=== PATIENT | female | born 1990 | race American Indian/Alaskan Native ===

== ENCOUNTER 2017-01-18 16:04 | Emergency (ER) | payer SELFPAY ==
[2017-01-18 16:32] LABS: Urine Drugs of Abuse Note Disclamer
[2017-01-18 16:37] LABS: Basophils % (Auto) 0.7 % (0.0-1.8); Eosinophils % (Auto) 0.8 % (0.0-4.3); Hematocrit 39.8 % (30.3-42.9); Hemoglobin 13.7 gm/dl (10.1-14.3); Mean Corpuscular HGB Conc 35 % (30-34); Mean Corpuscular Hemoglobin 32 pg (28-32); Mean Corpuscular Volume 92 fl (79-97); Platelet Count 274 K/mm3 (140-440); Red Blood Count 4.35 M/mm3 (3.65-5.03); Red Cell Distribution Width 12.7 % (13.2-15.2); White Blood Count 6.7 K/mm3 (4.5-11.0)
[2017-01-18 16:48] LABS: Bilirubin,Urine NEG (Negative); Blood,Urine NEG (Negative); Ketones,Urine NEG (Negative); Leukocyte Esterase,Urine NEG (Negative); Nitrite,Urine NEG (Negative); Protein,Urine <15 mg/dL mg/dL (Negative); Urobilinogen,Urine < 2.0 mg/dL (<2.0); WBC,Urine < 1.0 /HPF (0.0-6.0)
[2017-01-18 16:48] LABS: Anion Gap 24 mmol/L; BUN/Creatinine Ratio 18.33; Blood Urea Nitrogen 11 mg/dL (7-17); Calcium 9.6 mg/dL (8.4-10.2); Carbon Dioxide 19 mmol/L (22-30); Chloride 99.4 mmol/L (98-107); Glucose 120 mg/dL (65-100); Potassium 3.5 mmol/L (3.6-5.0); Sodium 139 mmol/L (137-145)
[2017-01-18] MEDS ORDERED: NACL 0.9% 500 ML IR ONE (17:08)
--- NOTE | 2017-01-18 17:12 | Emergency Department Report ---
HPI - General Chief Complaint: Psych Time Seen by Provider: 01/18/17 16:50 - HPI HPI: Room 17 The patient is 26-year-old female presenting with a chief complaint of suicidal ideation. Patient states she has been suicidal for over one year and today her mother Korver in the room after cutting her wrists with a knife. Patient denies any other recent attempts at harming herself. Patient states this is the first time she actually attempted to harm herself. Patient is certain she received a tetanus shot last year she is up-to-date. Location: Mental state, bilateral wrist Duration: [see above] Quality: Suicidal Severity: Severe Modifying factors: [see above] Context: [see above] Mode of transportation: [not driving] ED Past Medical Hx - Past Medical History Previous Medical History?: No - Surgical History Past Surgical History?: No - Family History Family history: no significant - Social History Smoking Status: Never Smoker Substance Use Type: None (denies illicit drug use), Alcohol - Medications Home Medications: Home Medications Medication Instructions Recorded Confirmed Last Taken Type Unobtainable 01/18/17 01/18/17 Unknown History ED Review of Systems ROS: Stated complaint: SUICIDAL Other details as noted in HPI Comment: All other systems reviewed and negative Constitutional: denies: chills, fever Eyes: denies: eye pain, eye discharge, vision change ENT: denies: ear pain, throat pain Respiratory: denies: cough, shortness of breath, wheezing Cardiovascular: denies: chest pain, palpitations Endocrine: no symptoms reported Gastrointestinal: denies: abdominal pain, nausea, diarrhea Genitourinary: denies: urgency, dysuria, discharge Musculoskeletal: denies: back pain, joint swelling, arthralgia Skin: other (wrist lacerations) Neurological: denies: headache, weakness, paresthesias Psychiatric: suicidal thoughts Hematological/Lymphatic: denies: easy bleeding, easy bruising Physical Exam - Physical Exam Vital Signs: Vital Signs 01/18/17 16:08 Temperature 98.4 F Pulse Rate 63 Respiratory 20 Rate Blood Pressure 127/85 O2 Sat by Pulse 97 Oximetry Physical Exam: GENERAL: The patient is well-developed well-nourished female lying on stretcher appearing emotionally distraught. [] HEENT: Normocephalic. Atraumatic. Extraocular motions are intact. Patient has moist mucous membranes. NECK: Supple. Trachea midline CHEST/LUNGS: Clear to auscultation. There is no respiratory distress noted. HEART/CARDIOVASCULAR: Regular. There is no tachycardia. There is no gallop rub or murmur. ABDOMEN: Abdomen is soft, nontender. Patient has normal bowel sounds. There is no abdominal distention. SKIN: There are small lacerations to bilateral anterior wrists left greater than right. Hemostatic. NEURO: The patient is awake, alert, and oriented. The patient is cooperative. The patient has normal speech MUSCULOSKELETAL: There is no limitation range of motion. ED Course Vital Signs 01/18/17 16:08 Temperature 98.4 F Pulse Rate 63 Respiratory 20 Rate Blood Pressure 127/85 O2 Sat by Pulse 97 Oximetry ED Medical Decision Making - Lab Data Result diagrams: 01/18/17 16:20 01/18/17 16:20 Laboratory Tests 01/18/17 01/18/17 01/18/17 16:20 16:20 16:20 WBC 6.7 RBC 4.35 Hgb 13.7 Hct 39.8 MCV 92 MCH 32 MCHC 35 H RDW 12.7 L Plt Count 274 Lymph % (Auto) 22.2 [place] % (Auto) 4.2 Eos % (Auto) 0.8 Baso % (Auto) 0.7 Lymph # 1.5 [place] # 0.3 Eos # 0.1 Baso # 0.0 Seg Neutrophils % 72.1 H Seg Neutrophils # 4.8 Sodium 139 Potassium 3.5 L Chloride 99.4 Carbon Dioxide 19 L Anion Gap 24 BUN 11 Creatinine 0.6 L Estimated GFR > 60 BUN/Creatinine Ratio 18.33 Glucose 120 H Calcium 9.6 Urine Color Urine Turbidity Urine pH Ur Specific [place] Urine Protein Urine Glucose (UA) Urine Ketones Urine Blood Urine Nitrite Urine Bilirubin Urine Urobilinogen Ur Leukocyte Esterase Urine WBC (Auto) Urine RBC (Auto) Urine HCG, Qual Salicylates Urine Opiates Screen Urine Methadone Screen Acetaminophen Ur Barbiturates Screen Ur Phencyclidine Scrn Ur Amphetamines Screen U Benzodiazepines Scrn Urine Cocaine Screen U Marijuana (THC) Screen Drugs of Abuse Note Plasma/Serum Alcohol 0.09 H 01/18/17 01/18/17 01/18/17 16:24 16:24 16:29 WBC RBC Hgb Hct MCV MCH MCHC RDW Plt Count Lymph % (Auto) [place] % (Auto) Eos % (Auto) Baso % (Auto) Lymph # [place] # Eos # Baso # Seg Neutrophils % Seg Neutrophils # Sodium Potassium Chloride Carbon Dioxide Anion Gap BUN Creatinine Estimated GFR BUN/Creatinine Ratio Glucose Calcium Urine Color Colorless Urine Turbidity Clear Urine pH 6.0 Ur Specific [place] 1.001 L Urine Protein <15 mg/dl Urine Glucose (UA) Neg Urine Ketones Neg Urine Blood Neg Urine Nitrite Neg Urine Bilirubin Neg Urine Urobilinogen < 2.0 Ur Leukocyte Esterase Neg Urine WBC (Auto) < 1.0 Urine RBC (Auto) 1.0 Urine HCG, Qual Negative Salicylates < 0.3 L Urine Opiates Screen Urine Methadone Screen Acetaminophen < 15.0 Ur Barbiturates Screen Ur Phencyclidine Scrn Ur Amphetamines Screen U Benzodiazepines Scrn Urine Cocaine Screen U Marijuana (THC) Screen Drugs of Abuse Note Plasma/Serum Alcohol 01/18/17 16:29 WBC RBC Hgb Hct MCV MCH MCHC RDW Plt Count Lymph % (Auto) [place] % (Auto) Eos % (Auto) Baso % (Auto) Lymph # [place] # Eos # Baso # Seg Neutrophils % Seg Neutrophils # Sodium Potassium Chloride Carbon Dioxide Anion Gap BUN Creatinine Estimated GFR BUN/Creatinine Ratio Glucose Calcium Urine Color Urine Turbidity Urine pH Ur Specific [place] Urine Protein Urine Glucose (UA) Urine Ketones Urine Blood Urine Nitrite Urine Bilirubin Urine Urobilinogen Ur Leukocyte Esterase Urine WBC (Auto) Urine RBC (Auto) Urine HCG, Qual Salicylates Urine Opiates Screen Presumptive negative Urine Methadone Screen Presumptive negative Acetaminophen Ur Barbiturates Screen Presumptive negative Ur Phencyclidine Scrn Presumptive negative Ur Amphetamines Screen Presumptive negative U Benzodiazepines Scrn Presumptive negative Urine Cocaine Screen Presumptive negative U Marijuana (THC) Screen Presumptive negative Drugs of Abuse Note Disclamer Plasma/Serum Alcohol - Differential Diagnosis suicidal ideation, bilateral wrist lacerations Critical care attestation.: If time is entered above; I have spent that time in minutes in the direct care of this critically ill patient, excluding procedure time. ED Disposition Clinical Impression: Laceration of right wrist, Laceration of left wrist, Suicidal ideation Disposition: DC/TX PSY HOSP/PSY UNIT Is pt being admited?: No Does the pt Need Aspirin: No Condition: Serious Referrals: PRIMARY CARE, [Primary Care Provider] - 3-5 Days Time of Disposition: 17:13 (awaiting acceptance) Blank Doc - Documentation Documentation: Laceration note Consent was obtained verbally Length of wound: 3 cm cm Wound was copiously irrigated with normal saline Wound was closed with tissue adhesive The wound had [good] approximation The wound had [good] hemostasis Laceration type: Simple There were no complications
--- NOTE | 2017-01-19 11:24 | Consultation ---
History of Present Illness - Reason for Consult Consult date: 01/19/17 Reason for consult: Mental Health Evaluation Requesting physician: LYNSEY HOFF - Chief Complaint Chief complaint: "I have my highs and lows" - History of Present Psychiatric Illness The patient is 26-year-old female presenting with a chief complaint of suicidal ideation. Today patient calm, cooperative, but emotional during assessment. She stated that she have "highs and lows" in her mood over the past couple years. She stated that she don't have a full-time job, her ex-boyfriend of 6 yrs got , and her life isn't where she want it to be. She describe this period of her life as a "low." She decided to cut her wrists to kill herself prior to being transported to [facility]. Patient stated that she have thoughts of killing herself, but never went through with it. She denies having a plan now to kill herself. She denies SI/HI's, AVH's, but admit to being depressed. She rate her depression/anxiety a 10/10 with 10 being the worse. She denies sleep disturbance or poor appetite. She denies recreational drug use or alcohol consumption (etoh). Per the ER note, patient was observed by her mom cutting on wrists. Medications and Allergies Allergies Allergy/AdvReac Type Severity Reaction Status Date / Time No Known Allergies Allergy Unverified 01/18/17 16:08 Home Medications Medication Instructions Recorded Confirmed Last Taken Type Unobtainable 01/18/17 01/18/17 Unknown History Past psychiatric history - Past Medical History Past Medical History: No medical history Past Surgical History: No surgical history - past Psychiatric treatment and history psychiatric treatment history: No prior psy hx. Denies fam psy hx. - Social History Social history: lives with family ([employer] graduate with 2 yrs of college, [employer]) Mental Status Exam - Vital signs Last Vital Signs Temp 98.4 F 01/18/17 16:08 Pulse 63 01/18/17 17:23 Resp 20 01/18/17 17:23 BP 124/79 01/18/17 17:23 Pulse Ox 97 01/18/17 17:23 - Exam Narrative exam: ROS: (+) depression, (-) psychosis MSE: Appearance: cooperative, calm, emotional Behavior: poor eye contact Speech: regular rate and tone Mood: "depressed' Affect: congruent to mood Thought Process: linear Thought Content: denies SI/HI's and AVH's Motor Activity: ambulatory Cognition: a/ox 3 Insight: fair Judgment: poor Results Result Diagrams: 01/18/17 16:20 01/18/17 16:20 Abnormal lab results 01/18/17 01/18/17 01/18/17 Range/Units 16:20 16:20 16:20 MCHC 35 H (30-34) % RDW 12.7 L (13.2-15.2) % Seg Neutrophils % 72.1 H (40.0-70.0) % Potassium 3.5 L (3.6-5.0) mmol/L Carbon Dioxide 19 L (22-30) mmol/L Creatinine 0.6 L (0.7-1.2) mg/dL Glucose 120 H (65-100) mg/dL Ur Specific [place] (1.003-1.030) Salicylates (2.8-20.0) mg/dL Plasma/Serum Alcohol 0.09 H (0-0.07) gm% 01/18/17 01/18/17 Range/Units 16:24 16:29 MCHC (30-34) % RDW (13.2-15.2) % Seg Neutrophils % (40.0-70.0) % Potassium (3.6-5.0) mmol/L Carbon Dioxide (22-30) mmol/L Creatinine (0.7-1.2) mg/dL Glucose (65-100) mg/dL Ur Specific [place] 1.001 L (1.003-1.030) Salicylates < 0.3 L (2.8-20.0) mg/dL Plasma/Serum Alcohol (0-0.07) gm% All other labs normal. Assessment and Plan Assessment and plan: Impression: MDD Severe Type. The patient is 26-year-old female presenting with a chief complaint of suicidal ideation. Today patient calm, cooperative, but emotional during assessment. She stated that she have "highs and lows" in her mood the past couple years. She stated that she don't have a full-time job, her ex-boyfriend of 6 yrs got , and her life isn't where she want it to be. She describe this period of her life as a "low." She denies SI/HI's and AVH's. Patient is dealing with life stressors at this time. Patient has superficial cuts on both wrists. DD: R/O Bipolar Recommendation/Plan: Continue 1013 with inpatient psy services. Start Zoloft 50 mg PO daily for depression and Vistaril 25 mg PO TID for anxiety. Discussed possible suicidality and medication induced olivia reference antidepressants. Gather collateral information from her mom if possible.
[2017-01-19] MEDS: ZOLOFT PO SCH (22:07)
[2017-01-19] MEDS: VISTARIL PO SCH (22:07)
--- NOTE | 2017-01-20 10:15 | Progress Note ---
Subjective - Reason for Consult Consult date: 01/20/17 Reason for consult: Psychiatry Follow-up - Chief Complaint Chief complaint: "I am embarrassed" The patient is 26-year-old female presenting with a chief complaint of suicidal ideation. Today patient calm, cooperative, but emotional during assessment. She stated being embarrassed and should have use better judgment other than cutting her wrists. She stated that she felt that her life is "nothing." I spoke with her mother Nuvia Plascencia [phone] and she stated that her daughter wrote a journal about how her life isn't going well. Also, in this the patient journal spoke about how she has let her family down. Her mom stated that the patient recorded the act (cutting of her wrists). The patient denies SI/HI's, AVH's, depression or anxiety symptoms. She denies side effects to her psy medication. Mental Status Exam - Vital signs Last Vital Signs Temp 98.4 F 01/20/17 03:52 Pulse 85 01/20/17 03:52 Resp 18 01/20/17 03:52 BP 108/83 01/20/17 03:52 Pulse Ox 99 01/20/17 03:52 - Exam Narrative exam: MSE: Appearance: cooperative, calm Behavior: good eye contact Speech: regular rate and tone Mood: "okay" Affect: congruent to mood Thought Process: linear Thought Content: denies SI/HI's and AVH's Motor Activity: ambulatory Cognition: a/ox 3 Insight: fair Judgment: fair Assessment and Plan Impression: MDD Severe Type. The patient is 26-year-old female presenting with a chief complaint of suicidal ideation. Today patient calm, cooperative, but emotional during assessment. She stated being embarrassed and should have use better judgment other than cutting her wrists. She stated that she felt that her life is "nothing." I spoke with her mother Nuvia Plascencia [phone] and she stated that her daughter wrote a journal about how her life isn't going well.Patient has superficial cuts on both wrists. She denies SI/HI's and AVH's. Recommendation/Plan: Continue 1013 with inpatient psy services. Continue Zoloft 50 mg PO daily for depression and Vistaril 25 mg PO TID for anxiety. Discussed possible suicidality and medication induced olviia reference antidepressants.
[2017-01-20] MEDS: ZOLOFT PO SCH (10:25)
[2017-01-20] MEDS: VISTARIL PO SCH (10:25)
[2017-01-20 12:04] VITALS: BP 108/71
== END 2017-01-20 13:30 ==
LOC: ED 16:04 → EEVIPCON 16:04 → ED 01-20 13:30
DX: S61.512A Laceration without foreign body of left wrist, initial encounter (principal); S61.511A Laceration without foreign body of right wrist, initial encounter; R45.851 Suicidal ideations; X78.1XXA Intentional self-harm by knife, initial encounter; Y93.89 Activity, other specified; Y99.9 Unspecified external cause status; Y92.89 Other specified places as the place of occurrence of the external cause
CPT/HCPCS: 12002; 36415; 80048; 80307; 81001; 81025; 85025; 99285; G0480; 80320; Q0177